=== PATIENT | female | born 1965 | race Caucasian/White ===

== ENCOUNTER 2020-12-27 16:00 | Outpatient (RCR) | payer BC, SELFPAY ==
--- NOTE | 2020-11-19 16:14 | [facility].PTOPEV ---
PT Outpatient Evaluation Rehab PT Outpatient Evaluation Start: 11/19/20 15:43 Freq: Status: Active Protocol: Document 11/19/20 15:43 [email or web address] (Rec: 11/19/20 16:14 [email or web address] [id number]) Electronically Signed By Real Ortega, PT 11/19/20 15:43 Outpatient Therapy Subjective History Subjective History Pt. is a 54 year old female who presents to Outpatient PT clinic w/ complaints of subacute on chronic and constant cervical/ bilateral shldr.(L>R)/BUE(L>R) P!, tingling, and numbness of traumatic onset 2 months ago. Pt. reports initial insidious onset of symptoms 2 years ago , but states symptoms have worsened in the past 2 months b/c she has been helping her son, who is a quadriplegic, w/ transfers. Pt. reports she does not have to help her son as much anymore to this date. Pt. describes current symptoms as a knot in her L shldr. and constant tingling in her LUE hand, states she is beginning to feel the tingling in her RUE hand. Pt. also describes her LUE as being heavy and weak, states she is afraid to lift a weighted object up at all. Recent diagnostic imaging positive for cervical DDD per pt. report. Pt. denies having injections for current pathology, but does report some symptom relief w/ prescribed medications. 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 Pt. RTMD 01/07/20. Current medications include Adipex, Losartan, Drisdol, Multivitamin, Xanax, Vitamin C , Tumerick, Aspirin, and Ventolin. PMH includes Hyperlipidemia, Benign essential Hypertension, HAZEL or Generalized Anxiety Disorder,
== END 2021-01-22 16:34 | disposition home or self-care (01) ==
LOC: PT 16:00
PROVIDERS: PCP Internal Medicine Adolescent Medicine; Visit Provider Internal Medicine Adolescent Medicine
DX: M54.12 Radiculopathy, cervical region (principal)
CPT/HCPCS: 20560; 97010; 97012; 97014; 97035; 97110; 97140; 97163; G0283